=== PATIENT | male | born 1985 | race Caucasian/White ===

== ENCOUNTER 2022-03-17 21:51 | Emergency (ER) | payer OTHER, SELFPAY ==
[2022-03-17 21:58] VITALS: BP 131/85; PULSE 81; RESP 18; TEMP 36; O2SAT 99
--- NOTE | 2022-03-17 22:17 | ED.DENTAL ---
HPI - Dental/Oral General Chief complaint: Dental/Oral Stated complaint: tooth ache Time Seen by Provider: 03/17/22 21:55 Source: patient and RN notes reviewed Mode of arrival: ambulatory Limitations: no limitations History of Present Illness Complaint: tooth pain Onset (ago): day(s) (1) Severity: moderate Severity scale (1-10): 5 Relieving factors: nothing Exacerbating factors: chewing Context: history of dental caries Treatment prior to arrival: none Related Data Allergies Allergy/AdvReac Type Severity Reaction Status Date / Time No Known Allergies Allergy Verified 03/17/22 22:02 Review of Systems Review of Systems: All systems reviewed & are unremarkable except as noted in HPI and below Constitutional: Constitutional: Reports no additional constitutional complaints Eyes: Eyes: Reports no additional eye complaints ENT: Reports system reviewed and no additional complaints, except as documented Comments: toothache Cardiovascular: Cardiovascular: Reports no additional cardiovascular complaints Respiratory: Respiratory: Reports no additional respiratory complaints Gastrointestinal: Gastrointestinal: Reports no additional gastrointestinal complaints Musculoskeletal: Musculoskeletal: Reports no additional musculoskeletal complaints Integumentary/Breasts: Skin/Breast: Reports system reviewed and no additional complaints, except as docu Neurologic: Reports system reviewed and no additional complaints, except as documented Psychiatric: Psychiatric: Reports no additional psychiatric complaints Endocrine: Endocrine: Reports no additional endocrine complaints Hematologic/Lymphatic: Hematologic/Lymphatic: Reports no additional hematologic/lymphatic complaints Allergic/Immunologic: Allergic/Immunologic: Reports no additional allergic/immunologic complaints PMFSH Past Medical History Medical History Dental abscess Dental caries Exam Const: General: healthy appearing and no acute distress Nutritional Appearance: well nourished Orientation/consciousness: patient oriented x3 Limitations: no limitations HENMT: Head: normal to inspection Ears: external ears normal, TM's normal bilaterally and EAC's normal General nose exam: Normal external nose present and Normal nares present Face and sinus: normal facial exam and sinuses nontender Mouth: Yes Normal oral and palatal mucosa present and Yes moist mucous membranes Teeth and gingiva: abnormal tooth and associated gingiva (left upper pre-molar broken tooth) Throat: posterior oropharynx normal Eyes: Conjunctivae: conjunctivae normal Pupils: Equal, round and reactive pupils present EOM: EOMs intact bilaterally Neck: Neck: normal visual inspection, no lymphadenopathy and no meningeal signs Chest: Chest palpation & inspection: normal inspection of the chest Resp: Effort & Inspection: normal respiratory effort Auscultation: clear to auscultation bilaterally Cardio: Rate: regular rate Rhythm: regular rhythm GI: GI Palp: Yes Soft to palpation and No Tenderness to palpation present (GI) Auscultation: normal bowel sounds : General: Yes bladder normal to palpation and Yes no CVA tenderness Back/Spine/Pelvis: Back: no CVA tenderness Skin: General skin exam: normal color Rashes: no rashes Wounds: no wounds Neuro: General: patient oriented x3, moves all extremities, no meningeal signs, no focal motor deficits and CN's II-XI intact bilaterally Cranial nerves: Yes Equal, round and reactive pupils present and Yes Nystagmus not present Speech: normal speech Gait exam (Neuro): Normal gait present Extrem: General: normal to inspection and no pedal edema Psych: Mental Status: mental status grossly normal Affect: normal affect Attitude: cooperative Course Course Emergency Course: Pt was stable in the ED, less painful Reevaluation(s) Reevaluation #1: VSS Date: 03/17/22 Time: 22:11 Vital Signs
[2022-03-17] MEDS: IBUPROFEN 400 MG TABLET 800 MG PO (22:21)
[2022-03-17 22:42] VITALS: BP 116/80; PULSE 69; RESP 18; TEMP 36.1; O2SAT 98
== END 2022-03-17 22:53 | disposition home or self-care (01) ==
LOC: CHSED 22:24
PROVIDERS: Emergency Provider Emergency Medicine; PCP Physician Assistant
DX: K02.9 Dental caries, unspecified (principal); K04.7 Periapical abscess without sinus
CPT/HCPCS: 99283; A9270

== ENCOUNTER 2022-05-02 14:22 | Emergency (ER) | payer OTHER, SELFPAY ==
[2022-05-02 14:32] VITALS: TEMP 36.2
[2022-05-02 14:38] VITALS: BP 123/86; PULSE 78; RESP 16; O2SAT 98
--- NOTE | 2022-05-02 14:43 | ED.DENTAL ---
HPI - Dental/Oral General Chief complaint: Dental/Oral Stated complaint: face swollen and mouth issues Time Seen by Provider: 05/02/22 14:43 Source: patient and RN notes reviewed Mode of arrival: ambulatory Limitations: no limitations History of Present Illness MD Complaint: tooth pain Location: Tooth # (13) Onset (ago): week(s) (2) Duration: constant Severity: moderate Relieving factors: nothing Exacerbating factors: chewing Context: history of dental caries Associated symptoms: gum swelling ( Left upper) Treatment prior to arrival: none Related Data Allergies Allergy/AdvReac Type Severity Reaction Status Date / Time No Known Allergies Allergy Verified 05/02/22 14:36 Review of Systems Review of Systems: All systems reviewed & are unremarkable except as noted in HPI and below Constitutional: Constitutional: Denies chills and Denies fever(s) PMFSH Past Medical History Medical History (Updated 05/02/22 @ 15:04 by Ankit Geiger MD) Dental abscess Dental caries Surgical History Surgical History (Updated 05/02/22 @ 15:02 by Ankit Geiger MD) History of appendectomy Exam Const: General: healthy appearing, no acute distress and alert Nutritional Appearance: well nourished Orientation/consciousness: patient oriented x3 Limitations: no limitations HENMT: Head: normocephalic and atraumatic Ears: external ears normal Face/Nose/Sinus: Normal external nose present Face and sinus: edema on the left maxilla Mouth: Yes Normal oral and palatal mucosa present and Yes moist mucous membranes Teeth and gingiva: abnormal tooth and associated gingiva upper left second bicuspid tender, with associated gingival edema and with associated gingival fluctuance Eyes: Conjunctivae: conjunctivae normal Pupils: Equal, round and reactive pupils present EOM: EOMs intact bilaterally Neck: Neck: normal visual inspection Resp: Effort & Inspection: normal respiratory effort Auscultation: clear to auscultation bilaterally Cardio: Rate: regular rate Rhythm: regular rhythm GI: GI Palp: Yes Soft to palpation and No Tenderness to palpation present (GI) Auscultation: normal bowel sounds Back/Spine/Pelvis: Cervical Spine: cervical ROM normal Thoracic/Lumbar Spine: thoraco-lumbar ROM normal Skin: General skin exam: normal color Rashes: no rashes Neuro: General: patient oriented x3, moves all extremities, no focal motor deficits and CN's II-XI intact bilaterally Speech: normal speech Gait exam (Neuro): Normal gait present Extrem: General: normal to inspection and no clubbing, cyanosis or edema Psych: Mental Status: mental status grossly normal Affect: normal affect Attitude: cooperative Course Vital Signs Vital signs: Vital Signs Temperature 36.2 C L 05/02/22 14:32 Temperature 36.2 C L 05/02/22 14:32 Pulse Rate 78 05/02/22 14:38 Respiratory Rate 16 05/02/22 14:38 Blood Pressure 123/86 05/02/22 14:38 Pulse Oximetry 98 05/02/22 14:38 Oxygen Delivery Room Air 05/02/22 14:38 Discharge Plan Discharge Clinical Impression: Dental abscess Patient Disposition: Home, Self-Care Condition: Stable Instructions: Antibiotic Form, Dental Abscess (ED) Additional Instructions: see a dentist for extraction of your tooth. Prescriptions: New amoxicillin 500 mg tablet 500 mg PO Q8H 10 Days Qty: 30 0RF nabumetone 750 mg tablet 750 mg PO BID 10 Days Qty: 20 0RF No Action ibuprofen 800 mg tablet 800 mg PO TID Qty: 20 0RF Follow-up/Referrals: Mary,ALYSSA Alvarez [Primary Care Provider] - Time of Disposition: 15:04
== END 2022-05-02 15:10 | disposition home or self-care (01) ==
PROVIDERS: Emergency Provider Emergency Medicine; PCP Physician Assistant
DX: K04.7 Periapical abscess without sinus (principal)
CPT/HCPCS: 99283

== ENCOUNTER 2022-05-29 07:06 | Outpatient (CLI) | payer OTHER, SELFPAY ==
--- NOTE | ~2022-05-29 | US_ITS ---
EXAMINATION: US scrotum doppler DATE: 05/29/2022 08:08 INDICATION: Painful, tender left lower scrotal mass. History of prior vasectomy. TECHNIQUE: Grayscale and Doppler ultrasound images of the testes were obtained. COMPARISON: None. FINDINGS: The right testis measures 5.1 x 2.5 x 2.1 cm. The left testis measures 5.1 x 2.7 x 2.2 cm. No testicular mass. There is normal vascular flow to both testes. The right epididymis demonstrates t ubular ectasia but is otherwise normal, with normal vascular flow. The left epididymis demonstrates t ubular ectasia and contains a 1.6 x 1.1 ovoid circumscribed heterogeneously echogenic masslike area i n the epididymal tail with increased surrounding Doppler signal and the suggestion of some areas of i nternal flow. Small bilateral hydroceles. No varicocele. 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 Other epididymal mass or epidermal abscess could appear similar , consider urology consultation, presumptive treatment, and ultrasound follow-up to ensure resolution . Reviewed, dictated and finalized at location K. E UP ARTIST APPRENTICE IMPRESSION: Findings in the left epididymal tail may reflect epididymitis nodosa (sperm edgar l granuloma), in a background of bilateral tubular ectasia. Other epididymal ma ss or epidermal abscess could appear similar, consider urology consultation, pr esumptive treatment, and ultrasound follow-up to ensure resolution.
== END 2022-05-29 07:07 | disposition home or self-care (01) ==
LOC: CHSIMG 07:07
PROVIDERS: PCP Physician Assistant; Visit Provider Physician Assistant
DX: N50.89 Other specified disorders of the male genital organs (principal)
CPT/HCPCS: 76870; 93976

== ENCOUNTER 2022-08-22 18:57 | Emergency (ER) | payer OTHER, SELFPAY ==
--- NOTE | ~2022-08-22 | CT_ITS ---
EXAMINATION: CT abdomen pelvis wo con DATE: 08/22/2022 19:29 INDICATION: severe rlq abdominal pain (prior appendectomy) TECHNIQUE: Computed tomography (CT) of the abdomen and pelvis was performed without intravenous contr ast. Automated exposure control and iterative reconstruction technique were employed. The dose-length product was 319.91 mGy-cm. COMPARISON: None. FINDINGS: Lower thorax: Minimal dependent atelectasis Liver: Normal. Biliary/Gallbladder: Gallbladder is normal. No bile duct dilation. Pancreas: No mass or duct dilation. Spleen: Normal. Adrenals:No mass. Kidneys: Bilateral nephrocalcinosis. Moderate pelviectasis and mild ureterectasis of the proximal and mid ureter on the right. 4 x 5 mm right ureteral stone at the level of the crossing vessels. GI tract: No small or large bowel dilation. Appendix not visualized. Mesentery/Peritoneum: No ascites, mass, or free air. Retroperitoneum: No mass. Pelvis: Pelvic organs are within normal limits. Soft Tissues: Soft tissues and body wall unremarkable. Bones: No acute osseous finding. IMPRESSION: 4 x 5 mm distal right ureteral stone causing mild-moderate obstructive uropathy. Reviewed, dictated and finalized at location K. OGRAPHIC PRESS HELPER IMPRESSION: 4 x 5 mm distal right ureteral stone causing mild-moderate obstructive uropathy .
[2022-08-22 18:58] VITALS: BP 159/105; PULSE 56; RESP 14; TEMP 36.1; O2SAT 99
--- NOTE | 2022-08-22 19:04 | ED.ABDPAIN ---
HPI - Abdominal Pain General Chief Complaint: Abdominal Pain Stated Complaint: stomach ache Time Seen by Provider: 08/22/22 19:02 History of Present Illness HPI narrative: Pt presents with constant RLQ abdominal pain for the last hour. Pt has prior appendectomy. Pt sasy does have some pressure in right flank and nausea but no vomiting or diarrhea or dysuria or frequency. Pain is constant and does not wax and wane in intensity. Related Data Allergies Allergy/AdvReac Type Severity Reaction Status Date / Time No Known Allergies Allergy Verified 05/02/22 14:36 Review of Systems Review of Systems: All systems reviewed & are unremarkable except as noted in HPI and below PMFSH Past Medical History Medical History (Updated 08/22/22 @ 21:48 by Tamiko Leblanc III, DO) Dental abscess Dental caries Surgical History Surgical History (Updated 05/02/22 @ 15:02 by Ankit Geiger MD) History of appendectomy Exam Const: General: healthy appearing Nutritional Appearance: well nourished Orientation/consciousness: patient oriented x3 Limitations: no limitations Neck: Neck: normal visual inspection Resp: Effort & Inspection: normal respiratory effort Auscultation: clear to auscultation bilaterally Cardio: Rate: regular rate Rhythm: regular rhythm GI: GI Palp: Yes Soft to palpation, Yes Tenderness to palpation present (GI) (rlq) and Yes Guarding due to palpation present (GI) Auscultation: normal bowel sounds Skin: General skin exam: normal color Rashes: no rashes Neuro: General: patient oriented x3, moves all extremities and no focal motor deficits Speech: normal speech Extrem: General: normal to inspection and no clubbing, cyanosis or edema Psych: Mental Status: mental status grossly normal Affect: normal affect Attitude: cooperative Course Vital Signs Vital signs: Vital Signs Temperature 97.0 F L 08/22/22 18:58 Pulse Rate 56 L 08/22/22 18:58 Respiratory Rate 14 08/22/22 18:58 Blood Pressure 159/105 H 08/22/22 18:58 Pulse Oximetry 99 08/22/22 18:58 Oxygen Delivery Room Air 08/22/22 18:58 Temperature 97.6 F 08/22/22 22:26 Pulse Rate 82 08/22/22 22:26 Respiratory Rate 18 08/22/22 22:26 Blood Pressure 124/83 08/22/22 22:26 Pulse Oximetry 97 08/22/22 22:26 Oxygen Delivery Room Air 08/22/22 22:26 MDM - Abdominal Pain MDM Narrative Medical decision making narrative: pt has had appendectomy and presents with RLQ pain , could be kidney stone or some type of obstruction given sudden onset, as well as AAA and other abdominal catastrophies. will get UA, labs CT abd/pelvis and five IV dilaudid and zofran. Pt has 4x5 mm distal right ureteral stone with moderate hydro on CT blood work looks fine. UA is . Called exchange for Dr Becerra, told they do not cover [place] after hours and to call back during business hours. Pt pain controlled with Dilaudid 1 mg IVP x 2. Pt nauseated after. zofran 4 mg given twice and compazine 10 mg IV. Pt feels better after toradol but still not able to void. Pt wants to go home and will give urine specimen and take to PCP tomorrow. Pt has had 3 L IVF and waited almost 4 hrs and still not able to void. Lab Data 08/22/22 19:09 08/22/22 19:09 Labs: Lab Results 08/22/22 08/22/22 08/22/22 Range/Units 19:09 19:09 19:09 WBC 10.7 (4.8-10.8) K/mm3 RBC 4.70 (4.70-6.10) M/mm3 Hgb 15.0 (14.0-18.0) g/dL Hct 45.0 (40.0-54.0) % MCV 95.7 (78.0-102.0) fL MCH 31.9 H (27.0-31.0) pg MCHC 33.3 (32.0-36.0) g/dL RDW 12.1 (11.6-14.4) % Plt Count 269 (150-420) K/mm3 MPV 9.9 (8.7-11.0) fl Immature Gran % (Auto) 0.4 H (0.0-0.0) % Neut % (Auto) 55.5 (50.0-70.0) % Lymph % (Auto) 32.8 (18.0-42.0) % [place] % (Auto) 8.8 (2.0-11.0) % Eos % (Auto) 2.1 (1.0-6.0) % Baso % (Auto) 0.4 (0.0-1.0) % Lymph # (Auto) 3.51 (1.10-4.50) K/mm3 [place] # (Auto)
[2022-08-22 19:12] LABS: Basophils Absolute Auto 0.04 K/mm3 (0.00-0.10); Basophils Percent Auto 0.4 % (0.0-1.0); Eosinophils Absolute Auto 0.22 K/mm3 (0.02-0.50); Eosinophils Percent Auto 2.1 % (1.0-6.0); Immature Granulocyte Absolute 0.04 K/mm3 (0.00-0.00); Immature Granulocyte Percent A 0.4 % (0.0-0.0); Lymphocytes Absolute Auto 3.51 K/mm3 (1.10-4.50); Lymphocytes Percent Auto 32.8 % (18.0-42.0); Mean Corpuscular HGB Conc 33.3 g/dL (32.0-36.0); Mean Corpuscular Hemoglobin 31.9 pg (27.0-31.0); Mean Corpuscular Volume 95.7 fL (78.0-102.0); Mean Platelet Volume 9.9 fl (8.7-11.0); Monocytes Absolute Auto 0.94 K/mm3 (0.10-0.90); Monocytes Percent Auto 8.8 % (2.0-11.0); Neutrophils Absolute Auto 5.9 K/mm3 (1.7-7.2); Neutrophils Percent Auto 55.5 % (50.0-70.0); Platelet Count Result 269 K/mm3 (150-420); Red Cell Distribution Width 12.1 % (11.6-14.4); White Blood Count 10.7 K/mm3 (4.8-10.8)
[2022-08-22] MEDS: SODIUM CHLORIDE 0.9% IV 1,000 ML 999 ML IV CONT ×3 (19:13→21:32)
[2022-08-22] MEDS: HYDROmorphone HCL INJ (*CRX) 2 MG/ML VIAL 1 MG IV PUSH ×2 (19:13→19:40)
[2022-08-22] MEDS: ONDANSETRON INJ 4 MG/2 ML VIAL IV PUSH ×2 (19:13→20:33)
[2022-08-22 19:25] LABS: INR 0.9; Partial Thromboplastin Time 29.3 SEC (23.90-30.70); Prothrombin Time 10.3 Seconds (9.50-12.10)
[2022-08-22 19:26] LABS: Alanine Aminotransferase 24 U/L (16-63); Albumin Level 4.1 g/dL (3.4-5.0); Alkaline Phosphatase 114 U/L (46-116); Anion Gap 6 mmol/L (8-16); Aspartate Amino Transferase 21 U/L (15-37); Bilirubin,Total 0.1 mg/dL (0.00-1.00); Blood Urea Nitrogen 14 mg/dL (7-18); Calcium 9.1 mg/dL (8.5-10.1); Carbon Dioxide 28 mmol/L (21-32); Chloride 102 mmol/L (98-108); Estimated CRCL calculation 78 ml/min; Estimated Glomerular Filt Rate > 60; Glucose 107 mg/dL (70-99); Osmolality Calculated 282 mOsm/kg (285-295); Potassium 4.1 mmol/L (3.5-5.1); Sodium 136 mmol/L (136-145); Total Protein 7.5 g/dL (6.4-8.2)
[2022-08-22] MEDS: TAMSULOSIN HCL 0.4 MG CAPSULE PO (20:33)
[2022-08-22] MEDS: PROCHLORPERAZINE EDISYLATE 10 MG/2 ML VIAL IV PUSH (21:16)
[2022-08-22] MEDS: KETOROLAC 15 MG/ML VIAL (*BKC) IV PUSH (21:41)
[2022-08-22 22:26] VITALS: BP 124/83; PULSE 82; RESP 18; TEMP 36.4; O2SAT 97
[2022-08-22] MEDS: HYDROcodone/acetaminophen (*CRX) 5-325 MG TABLET 1 TAB PO (22:41)
== END 2022-08-22 22:47 | disposition home or self-care (01) ==
PROVIDERS: Emergency Provider Emergency Medicine; PCP Physician Assistant
DX: N20.1 Calculus of ureter (principal)
CPT/HCPCS: 36415; 74176; 80053; 85025; 85610; 85730; 96361; 96374; 96375; 96376; 99284; A9270; J0780; J1170; J1885; J2405; J7030

== ENCOUNTER 2022-09-15 09:04 | Outpatient (CLI) | payer OTHER, SELFPAY ==
--- NOTE | ~2022-09-15 | US_ITS ---
EXAMINATION: US scrotum doppler DATE: 09/15/2022 09:41 INDICATION: Right testicular mass. TECHNIQUE: Grayscale and Doppler ultrasound images of the testes were obtained. COMPARISON: Ultrasound 05/29/2022 FINDINGS: The right testis measures 4.2 x 2.5 x 2.0 cm. The left testis measures 4.6 x 2.7 x 2.0 cm. There is normal vascular flow to both testes. The epididymides demonstrate tubular ectasia, worst in the tail of the right epididymis. There is no varicocele or hydrocele. IMPRESSION: 1. Tubular ectasia of the epididymides, most prominent in the tail of the right epididymis, which ma y correlate with the patient's concern. Reviewed, dictated and finalized at location A. MAPPING TECHNICIAN IMPRESSION: 1. Tubular ectasia of the epididymides, most prominent in the tail of the righ t epididymis, which may correlate with the patient's concern.
== END 2022-09-15 09:05 | disposition home or self-care (01) ==
LOC: CHSIMG 09:06
PROVIDERS: PCP Physician Assistant; Visit Provider Physician Assistant
DX: N50.89 Other specified disorders of the male genital organs (principal)
CPT/HCPCS: 76870; 93976

== ENCOUNTER 2023-03-22 06:51 | Emergency (ER) | payer OTHER, SELFPAY ==
[2023-03-22 06:55] VITALS: BP 139/95; PULSE 85; RESP 16; TEMP 37.1; O2SAT 100
--- NOTE | 2023-03-22 07:13 | ED.SKABFB ---
HPI - Skin/Abscess/Foreign Bdy General Chief complaint: Skin/Abscess/Foreign Body Stated complaint: left arm pain Source: patient Mode of arrival: ambulatory Limitations: no limitations History of Present Illness HPI narrative: This is 37-year-old male who presents with some nonfluctuant abscess located under his left axilla with some tender swollen lymph nodes no fever chills no shortness of breath. complaint: abscess/boil Onset (ago): day(s) Related Data Allergies Allergy/AdvReac Type Severity Reaction Status Date / Time No Known Allergies Allergy Verified 05/02/22 14:36 Review of Systems Review of Systems: All systems reviewed & are unremarkable except as noted in HPI and below PMFSH Past Medical History Medical History Dental abscess Dental caries Surgical History Surgical History History of appendectomy Exam Const: General: healthy appearing Nutritional Appearance: well nourished Orientation/consciousness: patient oriented x3 Limitations: no limitations Chest: Chest palpation & inspection: normal inspection of the chest Resp: Effort & Inspection: normal respiratory effort Auscultation: clear to auscultation bilaterally Cardio: Rate: regular rate Rhythm: regular rhythm GI: Auscultation: normal bowel sounds Back/Spine/Pelvis: Back: no CVA tenderness Skin: Other: Small raised area under his left axilla it is warm tender proximally 2cm in diameter nonfluctuant no drainage with tender surrounding axillary lymph nodes Neuro: General: patient oriented x3 Cranial nerves: Yes Nystagmus not present Speech: normal speech Extrem: General: normal to inspection Psych: Mental Status: mental status grossly normal Course Course Emergency Course: distinct areas on the left axilla small area of redness and erythema explained the lymph nodes are enlarged to help fight the infection, no starting antibiotics advised to use warm compress to the affected area. Vital Signs Vital signs: Vital Signs Temperature 37.1 C 03/22/23 06:55 Pulse Rate 85 03/22/23 06:55 Respiratory Rate 16 03/22/23 06:55 Blood Pressure 139/95 H 03/22/23 06:55 Pulse Oximetry 100 03/22/23 06:55 Oxygen Delivery Room Air 03/22/23 06:55 Temperature 37.1 C 03/22/23 06:55 Pulse Rate 85 03/22/23 06:55 Respiratory Rate 16 03/22/23 06:55 Blood Pressure 139/95 H 03/22/23 06:55 Pulse Oximetry 100 03/22/23 06:55 Oxygen Delivery Room Air 03/22/23 06:55 Critical Care Time Critical Care Time Critical Care Time: No Discharge Plan Discharge Clinical Impression: Abscess of skin or subcutaneous tissue Qualifiers: Site of cutaneous abscess of extremity: axilla Laterality: left Patient Disposition: Home, Self-Care Condition: Stable Instructions: Antibiotic Form, Abscess (ED) Additional Instructions: Advised to take medicine as prescribed and follow up with primary within 1 week for further evaluation and treatment. Prescriptions: New amoxicillin-pot clavulanate [Augmentin] 500-125 mg tablet 1 tablet PO TID Qty: 30 0RF naproxen 500 mg tablet 500 mg PO BID Qty: 14 0RF Follow-up/Referrals: Mary,ALYSSA Alvarez [Primary Care Provider] - Time of Disposition: 07:17
== END 2023-03-22 07:24 | disposition home or self-care (01) ==
LOC: CHSED 07:17
PROVIDERS: Emergency Provider Emergency Medicine; PCP Physician Assistant
DX: L02.412 Cutaneous abscess of left axilla (principal)
CPT/HCPCS: 99283

== ENCOUNTER 2024-05-19 10:19 | Outpatient (CLI) | payer OTHER, SELFPAY ==
--- NOTE | ~2024-05-19 | XR_ITS ---
XR knee LT 3V Ordering provider: Mira Suggs, History: . Acute pain of left knee,MEDIAL PAIN . Comparison: None. FINDINGS: BONES: No acute fracture or dislocation. JOINT SPACES: Normal. SOFT TISSUES: Normal. IMPRESSION: No acute osseous abnormality left knee. Reviewed, dictated and finalized at location A. EHOLD COORDINATOR
== END 2024-05-19 10:20 | disposition home or self-care (01) ==
LOC: CHSIMG 10:22
PROVIDERS: PCP Family Medicine; Visit Provider Family Medicine
DX: M25.562 Pain in left knee (principal)
CPT/HCPCS: 73562

== ENCOUNTER 2024-05-26 16:01 | Outpatient (RCR) | payer OTHER, SELFPAY ==
--- NOTE | 2024-05-26 17:09 | PTOPEVAL1 ---
Assessment and note entered by Glenn Jade Evaluation Information Assessment Status Evaluation ICD-10 Condition Codes (PT) Pain in left knee M25.562 Onset 05/08/24 Subjective Information Pt. reports that he went to tie his daughters shoe and felt a pop in his knee. He describes pain on the inside of the left knee. He states that he underwent x-ray that was negative. He reports that he cannot have an MRI until he has PT. 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 He states that his leg is most comfortable if it is straight. He states that pain will wake him from sleep at night. He states that getting out of bed in the morning is painful. He states that bending his knee triggers most pain and states that he has trouble getting up and down steps. He reports that his goal is to decrease his left knee pain. Reported Pain Level Pain Score 7: Self Report Assessment PT Clinical Summary Pt. is a 39 year old male who enters the clinic with left knee pain. He presents with special testing consistent with possible pathology at the meniscus. He currently presents with impaired gait mechanics, impaired left knee flexion ROM, impaired left knee extension strength and pain. Continued skilled PT is indicated in order to improve these areas to allow the pt. to participate in IADL's with improved comfort and efficiency. Plan of Care Interventions Electrical Stimulation,Gait Training,Hot Pack/Cold Pack,Manual Therapy,Neuro Re-education, Therapeutic Activities,Therapeutic Exercise PT Services Indicated Yes Treatment Frequency and 2x/week x 8 visits Duration These treatments will address the objective and functional deficits as defined above. The patient will be advanced safely and appropriately in order for the patient to progress towards his/her prior level of function. Additional exercises will be introduced and as well as a comprehensive home exercise program upon discharge, if needed, ?to ensure carryover of functional gains achieved in the clinic. This treatment plan has been reviewed and agreement upon by the patient.
--- NOTE | 2024-05-26 17:10 | OPREHPOC ---
Outpatient Therapy Plan of Care This is a Multidisciplinary Plan of Care that may contain components documented by all disciplines (PT, OT, and ST.) PT Problem 1 PT Problem #1 Knowledge Deficit PT Goal 1 Goal / Goal Update Pt. will be independent with a HEP focusing on knee mobility adventist. Target Visit 2 PT Problem 2 PT Problem #2 Impaired Range of Motion PT Goal 1 Goal / Goal Update Pt. will attain 135 degrees pain free left knee flexion Pt. will be able to squat to 125 degrees knee flexion and hold position without pain to complete work related duties. Target Visit 8 PT Problem 3 PT Problem #3 Impaired Gait PT Goal 1 Goal / Goal Update Pt. will ambulate over level surface without deviation or pain noted. Target Visit 8 PT Problem 4 PT Problem #4 Impaired Functional Mobil PT Goal 1 Goal / Goal Update Pt. will present with less than 20% limitation on the LEFS indicating significant functional improvement. Target Visit 8
--- NOTE | 2024-05-30 13:01 | PCPTNOTE ---
Patient called & cancelled scheduled appointment this date due to [having another appointment ]
--- NOTE | 2024-07-11 15:17 | OPREHPOC ---
Outpatient Therapy Plan of Care This is a Multidisciplinary Plan of Care that may contain components documented by all disciplines (PT, OT, and ST.) PT Problem 1 PT Problem #1 Knowledge Deficit PT Goal 1 Goal / Goal Update Pt. will be independent with a HEP focusing on knee mobility advent. Target Visit 2 PT Problem 2 PT Problem #2 Impaired Range of Motion PT Goal 1 Goal / Goal Update Pt. will attain 135 degrees pain free left knee flexion Pt. will be able to squat to 125 degrees knee flexion and hold position without pain to complete work related duties. Target Visit 8 PT Problem 3 PT Problem #3 Impaired Gait PT Goal 1 Goal / Goal Update Pt. will ambulate over level surface without deviation or pain noted. Target Visit 8 PT Problem 4 PT Problem #4 Impaired Functional Mobility PT Goal 1 Goal / Goal Update Pt. will present with less than 20% limitation on the LEFS indicating significant functional improvement. Target Visit 8
--- NOTE | 2024-07-11 15:17 | PTOPDC ---
Assessment and note entered by JT File, PT Evaluation Information Assessment Status Discharge - Pt Not Present ICD-10 Condition Codes (PT) Pain in left knee M25.562 Onset 05/08/24 Subjective Information Pt. reports that he went to tie his daughters shoe and felt a pop in his knee. He describes pain on the inside of the left knee. He states that he underwent x-ray that was negative. He reports that he cannot have an MRI until he has PT. 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 He states that his leg is most comfortable if it is straight. He states that pain will wake him from sleep at night. He states that getting out of bed in the morning is painful. He states that bending his knee triggers most pain and states that he has trouble getting up and down steps. He reports that his goal is to decrease his left knee pain. Assessment PT Clinical Summary mr. puri has not been to skilled PT since 06/02/24 . he has been called and will be DC'd from skilled PT today. all progress towards goals is available on his most recent evaluation/note. Plan of Care PT Services Indicated Yes
== END 2024-06-02 17:45 | disposition home or self-care (01) ==
LOC: CHSPT 16:01
PROVIDERS: Visit Provider Family Medicine
DX: M25.562 Pain in left knee (principal)
CPT/HCPCS: 97014; 97110; 97161; G0283